=== PATIENT | male | born 1995 | race African-American/Black ===

== ENCOUNTER → 2019-10-09 | Emergency (ER) | payer SELFPAY ==
[~2019-10-09] VITALS: Ht 180.3 cm; Wt 85.5 kg
[2019-10-09 13:16] VITALS: PULSE 65; TEMP 98.7
== END ==
LOC: COL.ER 12:44
DX: S01.81XA Laceration without foreign body of other part of head, initial encounter (principal); Z23 Encounter for immunization; V43.53XA Car driver injured in collision with pick-up truck in traffic accident, initial encounter

== ENCOUNTER → 2019-10-19 | Outpatient (CLI) | payer SELFPAY ==
[2019-10-19 10:26] VITALS: BP 114/76; PULSE 61; TEMP 97.5
== END ==
LOC: COL.ER 10:24
DX: Z48.02 Encounter for removal of sutures (principal)

== ENCOUNTER → 2020-01-10 | Outpatient (CLI) | payer OTHER | LOC: COL.RAD 12-29 09:00 | DX: M25.511 Pain in right shoulder (principal) ==

== ENCOUNTER → 2020-01-13 | Outpatient (CLI) | payer OTHER | LOC: COL.RAD 10:29 | DX: M25.511 Pain in right shoulder (principal); Z87.81 Personal history of (healed) traumatic fracture | CPT/HCPCS: A9585; Q9967 ==

== ENCOUNTER 2020-02-04 17:31 | Observation (INO) | payer OTHER ==
[~2020-02-04] VITALS: Ht 180.3 cm; Wt 87.8 kg
[2020-02-04 00:30] VITALS: BP 160/77; PULSE 93; TEMP 97.6
[2020-02-04] MEDS ORDERED: ALBUTEROL S0.4 MG/ML PO (17:51)
--- NOTE | 2020-02-04 21:15 | NUR ---
Received patient via bed from OR. He is alert and oriented. With left arm sling, dressing of plaster and kwasi wrap. Patient's mother on the bedside. He has been coughing and spitting saliva with blood. He's on O2 at 2lpm via [place]. They have been telling us that they wanted to go home. Patient's states he feels fine and he has some anxiety so he wanted to go home tonight. This nurse called TEENA Bowen of Dr. Blackmon , regarding patient's request. She said that she will call back to ask Dr. Blackmon.
--- NOTE | 2020-02-04 21:30 | NUR ---
Jessi DICKINSON called to ask about patient's condition and vital signs. Informed her that patient still at O2 at 2lpm with SPO2 of 90%. Patient still coughing and spitting out blood. There's a blood discharge as well on his nose. Jessi said, given that he's still on oxygen and still coughing, they want the patient to stay overnight. Also, we need to monitor his pain level as well. Informed the patient and his mom and they are not happy about it. They keep on asking what if the patient feels better after an hour or two, can they still go home. Informed them that it's better for the patient to be monitored here overnight. They just requested for pain and anxiety medication to calm down the patient. The mom asked if the patient can take his inhaler as he has history of asthma and with the coughing that he has right now he feels like he's having a chest pressure. Jessi DICKINSON, said that patient can continue his inhaler and she will put post op orders.
[2020-02-04 21:50] VITALS: BP 110/79; PULSE 85; TEMP 97.3
--- NOTE | 2020-02-04 22:30 | NUR ---
Patient's mom still on the bedside. Informed Tameka charge nurse about it and she talked to the patient and his mom about the visitor's policy. His mom said she doesn't have a ride home tonight and that Dr. Blackmon allowed her to stay with the patient. Soniya RN, informed ice house supervisor Bobbi and they just let the patient's mom stay overnight. PAtient's cough has decreased as well and he starts to try to drink some fluids and take some ice chips.
[2020-02-04 22:41] VITALS: BP 132/74; PULSE 84
[2020-02-04 22:56] VITALS: BP 135/71; PULSE 89; TEMP 97.8
[2020-02-04 23:26] VITALS: BP 140/70; PULSE 94; TEMP 97.5
[2020-02-04 23:56] VITALS: BP 138/65; PULSE 87; TEMP 98.2
[2020-02-05] VITALS (8 sets, daily range): BP systolic 125–165; BP diastolic 54–91; PULSE 55–94; TEMP 97.8–98.4
--- NOTE | 2020-02-05 05:54 | NUR ---
Patient was able to sleep. He was on room air now with SPO2 of 92% and above. He states his pain lessen compared to awhile ago. He is not coughing anymore. Will endorse to day shift nurse.
--- NOTE | 2020-02-05 08:30 | NUR ---
Patient alert and oriented, answers questions appropriately. See assessment. LUE with hard splint/MARIYA and sling in place. Radial pulse palpable to LUE, no numbness or tingling reported. LUE fingers slighly swollen. No drainage noted to LUE splint. Post op exercises and s/s compartment syndrome reviewed with patient. Patient anxious to discharge. No c/o at this time.
--- NOTE | 2020-02-05 09:24 | NUR ---
Marlin ortho PA here to see patient.
[2020-02-05] MEDS ORDERED: NORCO 325 MG-7.1 TAB PO (09:33)
--- NOTE | 2020-02-05 10:25 | NUR ---
Discharge instructions reviewed with patient, verbalized understanding. Discharged ambulatory to auto/home with family at 1025.
== END 2020-02-05 10:20 | disposition home or self-care (01) ==
LOC: COL.ER 17:31 → SURG 21:29 → SDCO 21:29 → SURG 21:30 → SDCO 02-05 10:20 → SURG 02-05 10:20
PROVIDERS: ADMIT Orthopaedic Surgery
DX: E11.9 Type 2 diabetes mellitus without complications (principal); I10 Essential (primary) hypertension
CPT/HCPCS: OP; C1713; G0378; J0330; J0690; J1100; J1885; J2270; J2405; J2550; J2704; J3010; J7030